=== PATIENT | male | born 1975 | race Caucasian/White ===

== ENCOUNTER 2017-04-30 08:17 | Day surgery (SDC) | payer OTHER ==
[2017-04-30] MEDS ORDERED: LACTATED RINGERS 1,000 ML IV ONE (08:30)
[2017-04-30] MEDS ORDERED: ceFAZolin 2 GM/50 ML 2 GM/50 ML BAG IV ONE (08:32)
[2017-04-30] MEDS ORDERED: BUPIVACAINE 0.5% PF 30 ML VIAL INFIL ONE ×2 (10:16→10:42)
[2017-04-30] MEDS ORDERED: PROPOFOL 200 MG/20 ML VIAL IVP ONE (10:55)
[2017-04-30] MEDS ORDERED: LIDOCAINE-MPF 2% 5 ML VIAL IM ONE (10:55)
[2017-04-30] MEDS ORDERED: ONDANSETRON 4 MG/2 ML VIAL IVP ONE (10:55)
[2017-04-30] MEDS ORDERED: fentaNYL 100 MCG/2 ML VIAL IVP ONE (10:55)
--- NOTE | 2017-04-30 11:07 | OPERATIVE REPORT ---
Operative Report - General Procedure Date: 04/30/17 Planned Procedure: Umbilical herniorrhaphy Pre-Op Diagnosis: Umbilical hernia Procedure Performed: Umbilical herniorrhaphy with mesh Post Op Diagnosis: Umbilical hernia - Procedure Note Primary Surgeon: Alexander Raymond MD Anesthesia Provider: Alexander Mullen MD Anesthesia Technique: Local (30 mL 1/2% marcaine), MAC IV Fluids (mL): 300 Estimated Blood Loss (mL): 5 Complications: None. - Other Other Information/Narrative: OPERATIVE DESCRIPTION/REPORT: After verbal and written informed consent was obtained detailing the risks of infection, bleeding requiring transfusion with its risks, nerve injury, and , and after I met with the patient confirming the surgery and the site of the surgery, the patient was brought to the operative suite and placed supine on the operating table. Great care was taken to avoid pressure points to prevent pressure necrosis or nerve injury. Monitoring devices were applied along with TEDs and pneumatic compressive stockings (to prevent DVT). The patient received preoperative antibiotics for surgical prophylaxis. Dr. Alexander Mullen sedated and anesthetized the patient for the entire procedure. The patient was prepped and draped in the usual sterile manner. With the patient draped my initials were clearly visible. A "time in" then confirmed that the paitient was identified with 3 identifiers (name, birthdate and medical record number), the history and physical was in the chart, the signed consent confirming the procedure was in the chart, the patient was in the correct position, the aforementioned prophylactic measures were in place or given, we had the correct personel and equipment to complete the procedure and that anesthesia, surgery and nursing were given an opportunuty to express any concerns. With the agreement of everyone in the room, we proceeded with the operation. After injecting the area with % Marcaine, a standard midline umbilical incision was made and dissection was carried down to the hernia sac using a combination of Metzenbaum scissors and Bovie electrocautery. The sac was cleared of overlying adherent tissue, and the fascial defect was delineated. The fascia was cleared of any adherent tissue for a distance 1.5 cm from the defect. The sac was placed back into the abdomen. The defect was closed using a Ventralex ST Hernia Patch (Lot # [id number], use by date 2017-10-28). This was secured to the fascia using interrupted 2-0 PDS sutures superiorly and inferiorly utilizing the straps and trimming the excess strap. The fascia was then closed over the mesh using a running 0 PDS. Meticulous hemostasis was obtained using Bovie electrocautery. The skin incision was approximated with a running subcuticular 4-0 Monocryl. After the prep was washed off, benzoin and steristrips were applied. A dressing was then applied. At this point a time out was performed that confirmed that all the counts were correct, the procedure that was performed, the blood loss, the IV fluids administered, and the patients condition. Having tolerated the procedure well, the patient was subsequently taken to recovery room in good and stable condition.
[2017-04-30] MEDS ORDERED: KETOROLAC 15 MG/ML VIAL ONE (11:19)
[2017-04-30] MEDS ORDERED: HYDROcod/ACETAM 5/325 MG TABLET ONE (11:51)
[2017-04-30 12:20] VITALS: BP 122/85
== END 2017-04-30 08:18 | disposition home or self-care (01) ==
LOC: SDS 08:17
PROVIDERS: ATTEND Surgery
PROC: 0WUF0JZ Supplement Abdominal Wall with Synthetic Substitute, Open Approach (ICD-10-PCS; principal; 2017-04-30 09:30)
DX: K42.9 Umbilical hernia without obstruction or gangrene (principal)
CPT/HCPCS: 49585; A9270; C1781; J0690; J7120

== ENCOUNTER 2017-06-26 21:43 | Outpatient (CLI) | payer OTHER | END 2017-06-26 21:44 | disposition home or self-care (01) | LOC: SC 21:43 | PROVIDERS: ATTEND Internal Medicine Pulmonary Disease | DX: G47.33 Obstructive sleep apnea (adult) (pediatric) (principal) | CPT/HCPCS: 95810 ==

== ENCOUNTER 2017-07-30 09:17 | Outpatient (CLI) | payer OTHER | END 2017-07-30 09:18 | disposition home or self-care (01) | LOC: SC 09:17 | PROVIDERS: ATTEND Nurse Practitioner Family | DX: G47.33 Obstructive sleep apnea (adult) (pediatric) (principal) | CPT/HCPCS: 99212; 99214 ==

== ENCOUNTER 2017-11-19 15:14 | Outpatient (CLI) | payer OTHER | END 2017-11-19 15:15 | disposition home or self-care (01) | LOC: SC 15:14 | PROVIDERS: ATTEND Nurse Practitioner Family | DX: G47.33 Obstructive sleep apnea (adult) (pediatric) (principal) | CPT/HCPCS: 99212; 99214 ==

== ENCOUNTER 2018-01-01 09:44 | Outpatient (CLI) | payer OTHER | END 2018-01-01 09:45 | disposition home or self-care (01) | LOC: SC 09:44 | PROVIDERS: ATTEND Nurse Practitioner Family | DX: G47.33 Obstructive sleep apnea (adult) (pediatric) (principal) | CPT/HCPCS: 99212; 99213 ==

== ENCOUNTER 2018-02-04 08:41 | Outpatient (CLI) | payer OTHER | END 2018-02-04 08:42 | disposition home or self-care (01) | LOC: SC 08:41 | PROVIDERS: ATTEND Nurse Practitioner Family | DX: G47.33 Obstructive sleep apnea (adult) (pediatric) (principal) | CPT/HCPCS: 99212; 99214 ==

== ENCOUNTER 2018-08-11 11:08 | Outpatient (CLI) | payer OTHER | END 2018-08-11 11:09 | disposition home or self-care (01) | LOC: SC 11:08 | PROVIDERS: ATTEND Nurse Practitioner Family | DX: G47.33 Obstructive sleep apnea (adult) (pediatric) (principal) | CPT/HCPCS: 99212; 99214 ==

== ENCOUNTER 2018-10-13 10:15 | Outpatient (CLI) | payer OTHER | END 2018-10-13 10:16 | disposition home or self-care (01) | LOC: SC 10:15 | PROVIDERS: ATTEND Nurse Practitioner Family | DX: G47.33 Obstructive sleep apnea (adult) (pediatric) (principal) | CPT/HCPCS: 99212; 99214 ==

== ENCOUNTER 2018-12-17 10:11 | Outpatient (CLI) | payer OTHER | END 2018-12-17 10:12 | disposition home or self-care (01) | LOC: SC 10:11 | PROVIDERS: ATTEND Nurse Practitioner Family | DX: G47.33 Obstructive sleep apnea (adult) (pediatric) (principal) | CPT/HCPCS: 99212; 99214 ==